=== PATIENT | female | born 2000 | race Two or more races ===

== ENCOUNTER → 2023-02-09 | Outpatient (CLI) | payer OTHER ==
[2023-02-09 18:55] LABS: HIV 1&2 SCREEN NEGATIVE (NEGATIVE)
[2023-02-09 19:03] LABS: HEPATITIS B CORE ANTIBODY IGM NEGATIVE (NEGATIVE); HEPATITIS C VIRUS ABY INDEX 0.14 INDEX (<0.8)
[2023-02-09 19:34] LABS: GC DNA AMPLIFICATION NEGATIVE (NEGATIVE)
[2023-02-09 20:01] LABS: GC DNA AMPLIFICATION NEGATIVE (NEGATIVE)
== END ==
LOC: M PLALAB 14:53
PROVIDERS: ATTEND Nurse Practitioner Family
DX: Z12.4 Encounter for screening for malignant neoplasm of cervix (principal); Z11.3 Encounter for screening for infections with a predominantly sexual mode of transmission
CPT/HCPCS: 36415; 86705; 86780; 86803; 87340; 87389; 87661; 87810; 87850; G0123